=== PATIENT | female | born 1945 | race Caucasian/White ===

== ENCOUNTER 2019-10-14 14:57 | Emergency (ER) | payer MEDICARE, BC ==
--- NOTE | 2019-10-14 15:14 | ER Document Report ---
ED Medical Screen (RME) - General Chief Complaint: Facial Injury Stated Complaint: FALL/FACIAL INJURY Time Seen by Provider: 10/14/19 15:02 Primary Care Provider: VENANCIO ANDREWS DDS [Primary Care Provider] - Follow up as needed Mode of Arrival: Wheelchair Information source: Patient Notes: 74-year-old female presented to ED for complaint of pain to her face and both knees. She was walking her dog today wearing her "pretty shoes "instead of her tennis shoes and tripped over the shoes. She states she always trips over her "pretty shoes ". She has pain to both knees with bruising and bruising and laceration to her nose. She has bruising to both cheeks. She is alert oriented respirations regular nonlabored speaking in full sentences. She does have a tremor. She states she always always has a tremor. She does have high cholesterol high blood pressure diabetes anxiety depression she had a hysterectomy her vocal cords repaired and bilateral tubal ligation. She states she has never smoke drink or use any illicit drugs. I have greeted and performed a rapid initial assessment of this patient. A comprehensive ED assessment and evaluation of the patient, analysis of test results and completion of medical decision making process will be conducted by an additional ED providers. TRAVEL OUTSIDE OF THE [place] IN LAST 30 DAYS: No - Related Data Allergies/Adverse Reactions: No Known Allergies Allergy (Unverified 04/01/11 15:57) Home Medications: Lexapro, Wellbutrin, Micardis, HCTZ Past Medical History - Social History Frequency of alcohol use: None Drug Abuse: None - Past Medical History Cardiac Medical History: Reports: Hx Hypertension Denies: Hx Coronary Artery Disease, Hx Heart Attack Pulmonary Medical History: Denies: Hx Asthma, Hx Bronchitis, Hx COPD, Hx Pneumonia Neurological Medical History: Denies: Hx Cerebrovascular Accident, Hx Seizures Musculoskeltal Medical History: Reports Hx Arthritis Psychiatric Medical History: Reports: Hx Depression Past Surgical History: Reports: Hx Appendectomy, Hx Hysterectomy. Denies: Hx Pacemaker - Immunizations Hx Diphtheria, Pertussis, Tetanus Vaccination: Yes Physical Exam - Vital signs Vitals: Temp Pulse Resp BP Pulse Ox 98.1 F 75 16 140/70 H 95 10/14/19 15:03 10/14/19 15:03 10/14/19 15:03 10/14/19 15:03 10/14/19 15:03 Course - Vital Signs Vital signs: Temp Pulse Resp BP Pulse Ox 98.1 F 75 16 140/70 H 95 10/14/19 15:03 10/14/19 15:03 10/14/19 15:03 10/14/19 15:03 10/14/19 15:03 Doctor's Discharge - Discharge Referrals: VENANCIO ANDREWS DDS [Primary Care Provider] - Follow up as needed
--- NOTE | 2019-10-14 15:44 | RADIOLOGY REPORT (SQ) ---
EXAM DESCRIPTION: KNEE BILATERAL 1-2 VIEWS IMAGES COMPLETED DATE/TIME: 10/14/2019 2:24 pm REASON FOR STUDY: fall pain injury COMPARISON: None. NUMBER OF VIEWS: Four views. TECHNIQUE: AP and lateral standing bilateral knees. LIMITATIONS: None. FINDINGS: MINERALIZATION: Normal. RIGHT KNEE BONES: No acute fracture. No worrisome bone lesions. MEDIAL COMPARTMENT: Bony spurring of the tibial spines. No joint space narrowing. No chondrocalci nosis. LATERAL COMPARTMENT: No significant osteophytes. No joint space narrowing. No chondrocalcinosis. PATELLOFEMORAL COMPARTMENT: No significant osteophytes. No joint space narrowing. No chondrocalc inosis. LEFT KNEE BONES: No acute fracture. No worrisome bone lesions. MEDIAL COMPARTMENT: Bony spurring of the tibial spines. No joint space narrowing. No chondrocalci nosis. LATERAL COMPARTMENT: Moderate sized marginal osteophyte at the tibia. No joint space narrowing. N o chondrocalcinosis. PATELLOFEMORAL COMPARTMENT: No significant osteophytes. No joint space narrowing. No chondrocalc inosis. IMPRESSION: [id number]-zz-svluhkce tricompartmental osteoarthritis left knee and mild tricompartmental ost eoarthritis right knee. No acute fracture or dislocation. TECHNICAL DOCUMENTATION: JOB ID: [id number] [employer]- All Rights Reserved Reading location - IP/workstation name: [email or web address]
--- NOTE | 2019-10-14 15:46 | RADIOLOGY REPORT (SQ) ---
EXAM DESCRIPTION: CT FACIAL AREA WITHOUT IMAGES COMPLETED DATE/TIME: 10/14/2019 3:23 pm REASON FOR STUDY: Fell landing on face COMPARISON: CT facial bones 04/01/2011. TECHNIQUE: Noncontrasted images through the facial bones and orbits windowed for bone and soft tissu e. Additional coronal and sagittal reconstructed images reviewed. All images stored on PACS. All CT scanners at this facility use dose modulation, iterative reconstruction, and/or weight based d osing when appropriate to reduce radiation dose to as low as reasonably achievable (ALARA). [facility]: Dose Right [facility]: CareDose [facility]: Dose Right [facility]: Teradose 4D [facility]: [employer] RADIATION DOSE: CT Rad equipment meets quality standard of care and radiation dose reduction techniq ues were employed. CTDIvol: 30.4 mGy. DLP: 578 mGy-cm. mGy. LIMITATIONS: There is streak artifact from the patient's dental amalgam. FINDINGS: FACIAL BONES: There is a mildly displaced, comminuted fracture at the nasal bone. There i s mildly displaced fracture of the nasal septum. ORBITS: No evidence for acute fracture. Symmetric intact globes and retroorbital soft tissues. PARANASAL SINUSES: No air-fluid levels. There is mucosal thickening at the bilateral maxillary sinus es, left more than right. There is complete opacification of the left frontal sinus. 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 SOFT TISSUES: There is soft tissue swelling with small amount of subcutaneous emphysema overlying the nasal bone. Small scalp hematoma overlying the anterior right frontal bone. INFERIOR BRAIN: Limited view. No acute findings. IMPRESSION: 1. Mildly displaced, comminuted fracture at the nasal bone with adjacent soft tissue sw elling and small amount of subcutaneous emphysema. Mildly displaced fracture of the nasal septum. 2. Small scalp hematoma overlying the anterior right frontal bone. 3. Sinus disease with complete opacification of the left frontal sinus and mucosal thickening at the bilateral maxillary sinuses. 4. 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 TECHNICAL DOCUMENTATION: JOB ID: [id number] [place]-64 Quality ID # [id number]: Final reports with documentation of one or more dose reduction techniques (e.g., Au tomated exposure control, adjustment of the mA and/or kV according to patient size, use of iterative reconstruction technique) 2010 [employer]- All Rights Reserved Reading location - IP/workstation name: [email or web address]
[2019-10-14] MEDS ORDERED: IBUPROFEN 600 MG TABLET PO ONE (17:14)
--- NOTE | 2019-10-14 17:18 | RADIOLOGY REPORT (SQ) ---
EXAM DESCRIPTION: CT HEAD WITHOUT IMAGES COMPLETED DATE/TIME: 10/14/2019 5:00 pm REASON FOR STUDY: trauma COMPARISON: CT head 04/01/2011. TECHNIQUE: Axial images acquired through the brain without intravenous contrast. Images reviewed wi th bone, brain and subdural windows. Images stored on PACS. All CT scanners at this facility use dose modulation, iterative reconstruction, and/or weight based d osing when appropriate to reduce radiation dose to as low as reasonably achievable (ALARA). [facility]: Dose Right [facility]: CareDose [facility]: Dose Right [facility]: Teradose 4D [facility]: [employer] RADIATION DOSE: CT Rad equipment meets quality standard of care and radiation dose reduction techniq ues were employed. CTDIvol: 53.2 mGy. DLP: 937 mGy-cm.mGy. LIMITATIONS: There is motion artifact. FINDINGS: VENTRICLES: Prominent. CEREBRUM: No mass effect. No hemorrhage. No midline shift. Areas of low density in the white matte r most likely due to chronic micro-vascular ischemic change. No evidence for acute territorial infar ction. CEREBELLUM: No hemorrhage. No alteration of density. No evidence for acute infarction. EXTRAAXIAL SPACES: Age-related involutional change. No fluid collections. ORBITS AND GLOBE: Symmetrical contour of the globes. CALVARIUM: No depressed fracture. PARANASAL SINUSES: There is complete opacification of the left frontal sinus. There is mucosal thick ening at the left maxillary sinus. SOFT TISSUES: Small hematoma at the anterior right frontal region. IMPRESSION: 1. No acute intracranial hemorrhage or depressed calvarial fracture. Small hematoma at the anterior right frontal region. 2. Chronic changes of atrophy and microvascular ischemia. 3. Sinus disease with complete opacification of the left frontal sinus and mucosal thickening at the left maxillary sinus. EVIDENCE OF ACUTE STROKE: NO. TECHNICAL DOCUMENTATION: JOB ID: [id number] MD-64 Quality ID # [id number]: Final reports with documentation of one or more dose reduction techniques (e.g., Au tomated exposure control, adjustment of the mA and/or kV according to patient size, use of iterative reconstruction technique) 2010 [employer]- All Rights Reserved Reading location - IP/workstation name: [email or web address]
--- NOTE | 2019-10-14 17:23 | RADIOLOGY REPORT (SQ) ---
EXAM DESCRIPTION: CT CERVICAL SPINE WITHOUT IMAGES COMPLETED DATE/TIME: 10/14/2019 5:00 pm REASON FOR STUDY: trauma COMPARISON: CT cervical spine 04/01/2011. TECHNIQUE: Axial images acquired through the cervical spine without intravenous contrast. Images re viewed with lung, soft tissue and bone windows. Reconstructed coronal and sagittal MPR images review ed. Images stored on PACS. All CT scanners at this facility use dose modulation, iterative reconstruction, and/or weight based d osing when appropriate to reduce radiation dose to as low as reasonably achievable (ALARA). [facility]: Dose Right [facility]: CareDose [facility]: Dose Right [facility]: Teradose 4D [facility]: [employer] RADIATION DOSE: CT Rad equipment meets quality standard of care and radiation dose reduction techniq ues were employed. CTDIvol: 21.4 mGy. DLP: 393 mGy-cm. mGy. LIMITATIONS: None. FINDINGS: ALIGNMENT: Anatomic. MINERALIZATION: Normal. VERTEBRAL BODIES: No fractures or dislocation. DISCS: Multilevel disc space narrowing with osteophytes. FACETS, LATERAL MASSES, POSTERIOR ELEMENTS: Facet arthropathy. No fractures. No dislocation. No ac krystle findings. HARDWARE: None in the spine. VISUALIZED RIBS: No fractures. LUNG APICES AND SOFT TISSUES: No significant or acute findings. IMPRESSION: No acute fracture at the cervical spine. Multilevel degenerative changes. TECHNICAL DOCUMENTATION: JOB ID: [id number] [place]-64 Quality ID # [id number]: Final reports with documentation of one or more dose reduction techniques (e.g., Au tomated exposure control, adjustment of the mA and/or kV according to patient size, use of iterative reconstruction technique) 2010 [employer]- All Rights Reserved Reading location - IP/workstation name: [email or web address]
--- NOTE | 2019-10-14 17:55 | ER Document Report ---
ED General - General Chief Complaint: Facial Injury Stated Complaint: FALL/FACIAL INJURY Time Seen by Provider: 10/14/19 15:02 Primary Care Provider: VENANCIO ANDREWS DDS [Primary Care Provider] - Follow up as needed Mode of Arrival: Wheelchair TRAVEL OUTSIDE OF THE [place] IN LAST 30 DAYS: No - HPI Notes: Chief complaint: Fall with injury to face and both knees History of present illness: This is a 74-year-old female with a history of essential familial tremor and hypertension follow Dr. Gerhard Hdz who reports a fall with injury to face and both knees which occurred about 2 hours prior to arrival here. Patient states she was walking her dog and was wearing some sandals. She apparently missed her step and stumbled sustaining a mechanical fall. She thinks she may have lost consciousness momentarily when she hit the ground. She notes swelling and pain over the nasal area. Mild nausea without vomiting. No focal neurologic symptoms. She is abraded both knees. We note this lady had a similar incident which occurred in March of this year. Patient is currently living alone. Last tetanus booster within the last 12 months. - Related Data Allergies/Adverse Reactions: No Known Allergies Allergy (Unverified 04/01/11 15:57) Home Medications: Lexapro, Wellbutrin, Micardis, HCTZ Past Medical History - General Information source: Patient, Relative, [facility] Records - Social History Smoking Status: Never Smoker Frequency of alcohol use: None Drug Abuse: None Family History: Reviewed & Not Pertinent - Past Medical History Cardiac Medical History: Reports: Hx Hypertension Denies: Hx Coronary Artery Disease, Hx Heart Attack Pulmonary Medical History: Denies: Hx Asthma, Hx Bronchitis, Hx COPD, Hx Pneumonia Neurological Medical History: Reports: Other - Familial essential tremor. Denies: Hx Cerebrovascular Accident, Hx Seizures Musculoskeletal Medical History: Reports Hx Arthritis Psychiatric Medical History: Reports: Hx Depression Past Surgical History: Reports: Hx Appendectomy, Hx Hysterectomy. Denies: Hx Pacemaker - Immunizations Hx Diphtheria, Pertussis, Tetanus Vaccination: Yes Review of Systems - Review of Systems Notes: Constitutional: Negative for fever. HENT: As per HPI. Eyes: Negative for visual changes. Cardiovascular: Negative for chest pain. Respiratory: Negative for shortness of breath. Gastrointestinal: Mild nausea without vomiting. Genitourinary: Negative for dysuria. Musculoskeletal: As per HPI. Skin: Negative for rash. Neurological: Dull headache present. Negative for focal weakness or numbness. 10 point ROS negative except as marked above and in HPI. Physical Exam - Vital signs Vitals: Temp Pulse Resp BP Pulse Ox 98.1 F 75 16 140/70 H 95 10/14/19 15:03 10/14/19 15:03 10/14/19 15:03 10/14/19 15:03 10/14/19 15:03 - Notes Notes: GENERAL: Elderly female who is awake alert and conversant. SKIN: Good turgor. HEAD: Bilateral periorbital ecchymoses and soft tissue swelling over the forehead area left greater than right with some superficial abrasions. 3.5 curvilinear laceration extending transversely over the bridge of the nose. Minimal venous oozing. Surrounding soft tissue swelling and tenderness. EYES: PERRLA. EOMI. Conjunctivae and sclerae clear. EARS: CANALS AND TMS CLEAR. NOSE: Small amount of crusted blood left nare. No active bleeding noted. No septal hematoma MOUTH: No dental trauma appreciated. No malocclusion. Moist mucosa. Good dentition. No stridor or edema. No drooling. NECK: Supple. Nontender. No step-off or crepitus. No masses or thyromegaly. No adenopathy. Carotids 2+ without bruits. No JVD. BACK: Symmetrical without tenderness. CHEST: Respirations unlabored. Breath sounds clear and symmetrical. HEART: Regular rhythm. No murmur gallop or rub. ABDOMEN: Soft nontender without masses, organomegaly or rebound. Bowel sounds normally active. No bruits. GENITALIA: Deferred. EXTREMITIES: Superficial abrasions anterior surface of both knees. Mild crepitus of both knee joints. No effusions. No ligamentous instability. No s tep-off present. No calf tenderness. Cap refill less than 1.5 seconds. Dorsalis pedis and posterior tibial pulses 3+ and symmetrical. NEUROLOGICAL: GCS 15. Alert and oriented x3. Patient has tremors of head and neck which according to her family member are her usual baseline. Fluent speech. Cranial nerves II through XII intact. Sensorimotor and cerebellar normal. Normal tone. PSYCHIATRIC: Appropriate affect. Course - Re-evaluation Re-evalutation: 10/14/19 18:00 Patient has evidence of a nasal fracture. The laceration over the facial area was irrigated with saline and closed with Dermabond. Will place patient on antibiotics. She will take Tylenol for pain at home. She will need follow-up with primary care and ENT. I am also going to start her on some amoxicillin. Patient will be supervised at home by her son over the weekend. Ice packs as needed. Cautioned return here for any red flag symptoms. Head injury instructions have been reviewed with him as well. We have also talked about prevention of falls. Findings, clinical impression and plan of treatment have been discussed with patient/family. Understanding of current findings and recommendations has been acknowledged by them and there is agreement regarding disposition and follow-up. - Vital Signs Vital signs: Temp Pulse Resp BP Pulse Ox 98.1 F 75 14 180/90 H 97 10/14/19 15:03 10/14/19 15:03 10/14/19 17:00 10/14/19 17:00 10/14/19 17:00 - Diagnostic Test Radiology reviewed: Reports reviewed - Per radiologist: CT brain negative. Facial CT shows nasal fracture and patient has some chronic sinus disease present. Cervical spine CT shows degenerative changes only with no fracture or subluxation. Plain films of both knees demonstrate advanced arthritic changes with no acute traumatic abnormalities. Procedures - Laceration/Wound Repair Face Time completed: 17:45 Wound length (cm): 3.5 - Transverse across bridge of nose Wound's Depth, Shape: Superficial Laceration pre-procedure: Chloraprep applied Wound explored: Clean Irrigated w/ Saline (mLs): 100 Wound Repaired With: Dermabond Complications: No Discharge - Discharge Clinical Impression: Facial contusions, Fall, Concussion with brief loss of consciousn, Bilateral knee abrasions Nasal bone fracture Qualifiers: Encounter type: initial encounter Fracture type: open Qualified Code(s): S02.2XXB - Fracture of nasal bones, initial encounter for open fracture Condition: Stable Disposition: HOME, SELF-CARE Additional Instructions: Facial Bone Fracture, Undisplaced You have a fracture of the facial bones. It's in good position to heal and needs no splinting or special protection. The fracture will take three to four weeks to heal. At first, the injured area should be cold-packed frequently. Rest in a semi-sitting position if possible. When pain and swelling subside, you can return to regular activities. Do not participate in sports for four weeks. The fracture must remain undisturbed. Call the doctor or return for re-evaluation if you suspect a re-injury, or if any of the following signs of complications occur: continued drainage of fluid or blood from the nose, fever, severe facial swelling or increasing pain, numbness, or loss of vision. Ice Packs Apply ice packs frequently against the painful area. Many different sche dules are recommended, such as "20 minutes on, 20 minutes off" or "one hour ice, two hours rest." If you need to work, you may need to go longer between ice treatments. You should plan to have the area ice packed AT LEAST one fourth of the time. The ice should be applied over the wrap, tape, or splint, or over a layer of cloth -- not directly against the skin. Some ice bags have a built-in cloth and can be put directly on the skin.Dermabond (Skin Adhesive Closure) Skin adhesive (such as Dermabond) is a quick-drying glue that remains slightly flexible while it holds wound edges together. It can substitute for stitches on some cuts. The film will usually fall off the skin after 5 to 10 days. Keep the wound area clean and dry. Do not soak or scrub the wound. Don't swim. You can shower briefly after 24 hours. Gently blot the area dry with a soft towel. Don't apply ointments. If there is a dressing, change it immediately if it gets wet. Do not place tape directly over the adhesive film, because the tape may pull the film off your skin as you remove it. Don't bump the wound area. If there's risk of injury, keep the area well- padded. Avoid stretching of the skin. Do not scratch or pick at the adhesive film. Avoid prolonged exposure to sunlight or tanning lamps. Return if there is increasing pain, swelling, redness, or drainage, or if the wound edges seem to open or separate. Tylenol as needed. Concussion You have suffered a concussion -- a temporary loss of certain brain functions due to a mild brain injury. The recovery is usually rapid and complete. The temporary problems occurring with a concussion can include loss of consciousness, dizziness, nausea, vomiting, and confusion. Repeat concussions can cause brain damage. In the future, avoid activities that will cause a blow to your head. Wear a helmet for sports such as snowboarding, biking, or skating. It's important that someone be with you for the first 24 hours. During this time, do not exercise or drive a vehicle. Do not take any pain medication stronger than acetaminophen unless prescribed by the physician. Any significant changes should be reported immediately to the physician. Signs of a problem may include: (1) Mental confusion (2) Incoordination or staggering (3) Repeated or forceful vomiting (4) Clear or bloody drainage from ear, mouth, or nose (5) Severe headache, not relieved by acetaminophen or prescribed pain medication (6) Failure to improve in 24 hours See your primary care doctor and ENT next week. Return here as needed for new or worsening symptoms: Pain that is worsening or unimproved Uncontrolled vomiting High fever or shaking chills Overall worsening Prescriptions: Amoxicillin 1 tab PO TID #30 tab Referrals: GERONIMO HDZ MD [COMMUNITY BASED STAFF] - Follow up as needed MARTÍN JACOBSON DO [ANTHONY COONEY] - Follow up as needed
[2019-10-14 18:15] VITALS: BP 159/55
== END 2019-10-14 18:15 | disposition home or self-care (01) ==
LOC: ER 14:57
DX: S06.0X1A Concussion with loss of consciousness of 30 minutes or less, initial encounter (principal); S80.212A Abrasion, left knee, initial encounter; S80.211A Abrasion, right knee, initial encounter; S02.2XXB Fracture of nasal bones, initial encounter for open fracture; W01.0XXA Fall on same level from slipping, tripping and stumbling without subsequent striking against object, initial encounter; Y93.K1 Activity, walking an animal; I10 Essential (primary) hypertension; Z90.710 Acquired absence of both cervix and uterus
CPT/HCPCS: 99284; 73560; 70450; 70486; 72125; 12013; A9270

== ENCOUNTER → 2019-12-09 | Outpatient (CLI) | payer MEDICARE, BC ==
--- NOTE | 2019-12-09 12:17 | RADIOLOGY REPORT (SQ) ---
EXAM DESCRIPTION: CHEST 2 VIEWS IMAGES COMPLETED DATE/TIME: 12/09/2019 11:58 am REASON FOR STUDY: COUGH COMPARISON: None. EXAM PARAMETERS: NUMBER OF VIEWS: two views TECHNIQUE: Digital Frontal and Lateral radiographic views of the chest acquired. RADIATION DOSE: NA LIMITATIONS: none FINDINGS: LUNGS AND PLEURA: No opacities, masses or pneumothorax. No pleural effusion. MEDIASTINUM AND HILAR STRUCTURES: No masses or contour abnormalities. HEART AND VASCULAR STRUCTURES: Heart normal size. No evidence for failure. BONES: No acute findings. HARDWARE: None in the chest. OTHER: No other significant finding. IMPRESSION: NO ACUTE RADIOGRAPHIC FINDING IN THE CHEST. TECHNICAL DOCUMENTATION: JOB ID: [id number] 2010 [employer]- All Rights Reserved Reading location - IP/workstation name: [email or web address]
== END ==
LOC: RAD 11:18
PROVIDERS: ATTEND Nurse Practitioner
DX: R05 Cough (principal)
CPT/HCPCS: 71046

== ENCOUNTER 2019-12-17 18:06 | Emergency (ER) | payer MEDICARE, BC ==
[2019-12-17 18:56] LABS: ABSOLUTE LYMPHOCYTES (AUTO) 1.5 10^3/uL (0.5-4.7); ABSOLUTE MONOCYTES (AUTO) 0.8 10^3/uL (0.1-1.4); ABSOLUTE NEUT (AUTO) 9.6 10^3/uL (1.7-8.2); BASOPHILS % (AUTO) 0.3 % (0-2); EOSINOPHILS % (AUTO) 0.2 % (0-6); HEMATOCRIT 48.7 % (36.0-47.0); HEMOGLOBIN 16.1 g/dL (12.0-15.5); LYMPHOCYTES % (AUTO) 12.7 % (13-45); MEAN CORPUSCULAR HEMOGLOBIN 29.2 pg (27.0-33.4); MEAN CORPUSCULAR VOLUME 88 fl (80-97); MONOCYTES % (AUTO) 6.5 % (3-13); PLATELET COUNT 183 10^3/uL (150-450); RED BLOOD COUNT 5.51 10^6/uL (3.72-5.28); RED CELL DISTRIBUTION WIDTH 13.7 % (11.5-14.0); SEGMENTED NEUTROPHILS % (AUTO) 80.3 % (42-78); TOTAL CELLS COUNTED % (AUTO) 100 %
--- NOTE | 2019-12-17 19:08 | RADIOLOGY REPORT (SQ) ---
EXAM DESCRIPTION: CHEST SINGLE VIEW IMAGES COMPLETED DATE/TIME: 12/17/2019 6:44 pm REASON FOR STUDY: SOB, cough COMPARISON: Chest x-ray 12/09/2019. EXAM PARAMETERS: NUMBER OF VIEWS: One view. TECHNIQUE: Single frontal radiographic view of the chest acquired. RADIATION DOSE: NA LIMITATIONS: Patient positioning. FINDINGS: LUNGS AND PLEURA: The patient is rotated. No consolidation, sizeable pleural effusion or pneumothorax. MEDIASTINUM AND HILAR STRUCTURES: No masses. Contour normal. HEART AND VASCULAR STRUCTURES: Heart normal in size. Normal vasculature. BONES: Multilevel degenerative changes at the spine. HARDWARE: None in the chest. IMPRESSION: No acute radiographic finding in the chest. TECHNICAL DOCUMENTATION: JOB ID: [id number] [place]-64 2010 [employer]- All Rights Reserved Reading location - IP/workstation name: [email or web address]
[2019-12-17 19:19] LABS: ALBUMIN 4.6 g/dL (3.5-5.0); ALKALINE PHOSPHATASE 172 U/L (38-126); ANION GAP 9 (5-19); ASPARTATE AMINO TRANSFERASE 559 U/L (14-36); BILIRUBIN,DIRECT 2.5 mg/dL (0.0-0.4); BILIRUBIN,TOTAL 4.1 mg/dL (0.2-1.3); BLOOD UREA NITROGEN 17 mg/dL (7-20); CALCIUM 11.3 mg/dL (8.4-10.2); CARBON DIOXIDE 31 mmol/L (22-30); CHLORIDE 96 mmol/L (98-107); GLUCOSE 153 mg/dL (75-110); POTASSIUM 4.4 mmol/L (3.6-5.0); TOTAL PROTEIN 7.4 g/dL (6.3-8.2)
[2019-12-17 20:17] LABS: NT PRO BNP 448 pg/mL (<125)
[2019-12-17 20:18] LABS: APPEARANCE,URINE SLIGHTLY-CLOUDY; BILIRUBIN,URINE NEGATIVE (NEGATIVE); COLOR,URINE AMBER; GLUCOSE, URINE NEGATIVE (NEGATIVE); KETONES,URINE TRACE mg/dL (NEGATIVE); LEUKOCYTE ESTERASE,URINE TRACE (NEGATIVE); NITRITE,URINE NEGATIVE (NEGATIVE); PROTEIN,URINE 30 mg/dL (NEGATIVE); URINE SPECIFIC GRAVITY 1.016
[2019-12-17 20:20] LABS: TROPONIN I < 0.012 ng/mL
--- NOTE | 2019-12-17 20:35 | ER Document Report ---
Entered by MARCUS NOEL SCRIBE 12/17/19 1836 Acting as scribe for:CHESTER WHITFIELD DO ED GI/ - General Chief Complaint: Nausea/Vomiting Stated Complaint: NAUSEA/VOMITING Time Seen by Provider: 12/17/19 18:34 Primary Care Provider: VENANCIO ANDREWS DDS [ACTIVE STAFF] - Follow up as needed Mode of Arrival: Ambulatory Information source: Patient Notes: This 74 year old female patient presents to the emergency department today with complaints of a one month history of decreased energy, cough, and shortness of breath for the last month. Patient reports that she was seen by her PCP at the beginning of this and she was diagnosed with bronchitis and was sent home on [employer]. Patient denies chest pain. TRAVEL OUTSIDE OF THE [place] IN LAST 30 DAYS: No - Related Data Allergies/Adverse Reactions: No Known Allergies Allergy (Unverified 04/01/11 15:57) Past Medical History - General Information source: Patient - Social History Smoking Status: Never Smoker Cigarette use (# per day): No Chew tobacco use (# tins/day): No Frequency of alcohol use: Occasional Drug Abuse: None Lives with: Family Family History: Reviewed & Not Pertinent Patient has homicidal ideation: No - Past Medical History Cardiac Medical History: Reports: Hx Hypertension Musculoskeletal Medical History: Reports Hx Arthritis Psychiatric Medical History: Reports: Hx Depression Past Surgical History: Reports: Hx Appendectomy, Hx Hysterectomy - Immunizations Hx Diphtheria, Pertussis, Tetanus Vaccination: Yes Review of Systems - Review of Systems Constitutional: See HPI, Malaise EENT: No symptoms reported Cardiovascular: denies: Chest pain Respiratory: See HPI, Cough, Short of breath Gastrointestinal: No symptoms reported Genitourinary: No symptoms reported Female Genitourinary: No symptoms reported Musculoskeletal: No symptoms reported Skin: No symptoms reported Hematologic/Lymphatic: No symptoms reported Neurological/Psychological: See HPI, Depression, Anxiety -: Yes All other systems reviewed and negative Physical Exam - Vital signs Vitals: Temp 98.2 F 12/17/19 18:21 - Notes Notes: Physical Exam: General: Alert, appears age appropriate. HEENT: Normocephalic. Atraumatic. PERRL. Extraocular movements intact. Oropharynx clear. Neck: Supple. Non-tender. Respiratory: No respiratory distress. Clear and equal breath sounds bilaterally. Cardiovascular: Regular rate and rhythm. Abdominal: Normal Inspection. Non-tender. No distension. Normal Bowel Sounds. Back: No gross abnormalities. Extremities: Moves all four extremities. Upper extremities: Normal inspection. Normal ROM. Lower extremities: Normal inspection. No edema. Normal ROM. Neurological: Normal cognition. AAOx4. Normal speech. Psychological: Slightly anxious. Skin: Warm. Dry. Normal color. Course - Re-evaluation Re-evalutation: 12/17/19 21:33 MDM 74 year old female sick for about a month with cough and congestion. Generally nonproductive cough. No fever. Lives alone. No chest pain and nontoxic here. Discussed outpt treatment and largely unremarkable workup with hypercalcemia. She expressed understanding regarding treatment and follow up. We discussed return here precautions too. - Vital Signs Vital signs: Temp Pulse Resp BP Pulse Ox 98.2 F 19 165/84 H 96 12/17/19 18:21 12/17/19 21:12 12/17/19 21:12 12/17/19 21:12 - Laboratory Result Diagrams: 12/17/19 18:34 12/17/19 18:34 Laboratory results interpreted by me: 12/17/19 12/17/19 12/17/19 18:34 18:34 18:34 WBC 12.0 H RBC 5.51 H Hgb 16.1 H Hct 48.7 H Lymph % (Auto) 12.7 L Absolute Neuts (auto) 9.6 H Seg Neutrophils % 80.3 H Sodium 135.5 L Chloride 96 L Carbon Dioxide 31 H Glucose 153 H Calcium 11.3 H Total Bilirubin 4.1 H Direct Bilirubin 2.5 H AST 559 H ALT 340 H Alkaline Phosphatase 172 H NT-Pro-B Natriuret Pep 448 H Urine Protein Urine Ketones Urine Blood Urine Urobilinogen Ur Leukocyte Esterase 12/17/19 20:00 WBC RBC Hgb Hct Lymph % (Auto) Absolute Neuts (auto) Seg Neutrophils % Sodium Chloride Carbon Dioxide Glucose Calcium Total Bilirubin Direct Bilirubin AST ALT Alkaline Phosphatase NT-Pro-B Natriuret Pep Urine Protein 30 H Urine Ketones TRACE H Urine Blood SMALL H Urine Urobilinogen 4.0 H Ur Leukocyte Esterase TRACE H - Diagnostic Test Radiology reviewed: Reports reviewed - EKG Interpretation by Me EKG shows normal: Sinus rhythm Rate: Normal Rhythm: NSR - NSR NL [place] [address] elevation or depression my interpretation. Discharge - Discharge Clinical Impression: Cough, Weakness, Hypercalcemia Condition: Stable Disposition: HOME, SELF-CARE Instructions: COVID-19 Guidance for Persons Under Investigation, Weakness ([facility]), Cough Suppressant & Expectorant Medications Additional Instructions: Rest, plenty of fluids. Call your doctor in the morning for follow up. Finish the antibiotic. Your calcium was a bit high and should be rechecked. Please return here for chest pain, shortness of breath or other problems or concerns. Medicine has been sent to [facility] in [place]. Referrals: VENANCIO ANDREWS DDS [ACTIVE STAFF] - 12/18/19 I personally performed the services described in the documentation, reviewed and edited the documentation which was dictated to the scribe in my presence, and it accurately records my words and actions.
[2019-12-17 22:00] VITALS: BP 157/90
--- NOTE | 2019-12-18 05:28 | EKG REPORT ---
SEVERITY:- NORMAL ECG - SINUS RHYTHM : Confirmed by: Patricio Palomo MD 18-Dec-2019 05:27:19
== END 2019-12-17 22:48 | disposition home or self-care (01) ==
LOC: ER 18:06
DX: R05 Cough (principal); E83.52 Hypercalcemia; R53.1 Weakness; R06.02 Shortness of breath; I10 Essential (primary) hypertension; F32.9 Major depressive disorder, single episode, unspecified; F41.9 Anxiety disorder, unspecified; Z20.828 Contact with and (suspected) exposure to other viral communicable diseases
CPT/HCPCS: 93005; 99285; 36415; 87040; 83605; 83735; 85025; 87077; 80053; 81001; 84484; 87150 ×26; 83880; 71045; 93010; U0003; C9803; 87186; 87635